=== PATIENT | male | born 1995 | race Caucasian/White ===

== ENCOUNTER 2020-05-18 08:56 | Emergency (ER) | payer OTHER, SELFPAY ==
--- NOTE | 2020-05-18 09:00 | ED.GENADULT ---
HPI - General Adult General Chief complaint: Nausea/Vomiting/Diarrhea Stated complaint: Stomach Pain Time Seen by Provider: 05/18/20 09:20 Source: patient Mode of arrival: ambulatory Limitations: no limitations History of Present Illness HPI narrative: 25-year-old male [facility] with complaints of nausea, vomiting, diarrhea and some abdominal pain. Patient states this started about 3 nights ago. Patient states that he has been on a diet recently however he had a cheat day the other day and ate some [place] food. Patient states she he does have issues of GERD in the past but has been off of his GERD medication for about 2 months. Patient states he was taking ranitidine and omeprazole. Patient states that after eating the [place] food at started getting his stomach upset and he has been having vomiting, nausea and some diarrhea yesterday. Denies any fevers. Patient states he has some abdominal discomfort but thinks it is mostly from him vomiting. Patient denies any chest pain, shortness of breath or sore throat. Related Data Allergies Allergy/AdvReac Type Severity Reaction Status Date / Time No Known Allergies Allergy Unverified 05/18/20 09:15 Review of Systems Review of Systems: Narrative: CONSTITUTIONAL: Denies fever, chills, or sweats. EYES: Denies visual changes, redness, or discharge. ENT: Denies rhinorrhea, congestion, sore throat, or otalgia. CARDIOVASCULAR: Denies chest pain, palpitations, or edema. RESPIRATORY: Denies cough or dyspnea. GASTROINTESTINAL: Abdominal discomfort, positive nausea, vomiting and diarrhea GENITOURINARY: Denies dysuria or hematuria. SKIN: Denies rash or itching. MUSCULOSKELETAL: Denies back pain, joint pain, or myalgia. NEUROLOGIC: Denies headache, numbness, or weakness. PSYCHIATRIC: Denies anxiety or depression. [facility] Past Medical History Medical History (Updated 05/18/20 @ 09:29 by KEVIN Waldron) GERD (gastroesophageal reflux disease) IBS (irritable bowel syndrome) Surgical History Surgical History (Updated 05/18/20 @ 09:01 by KEVIN Waldron) History of tonsillectomy Family History Family History Grandparent Family history of blood dyscrasia Diabetes mellitus Social History Social History Smoking status: Never smoker Comments At the time of my signature I agree with nursing past medical history, surgical, social, and family history. There is no relevant family history pertinent to the presenting complaint. Exam Narrative: Exam Narrative: GENERAL: Well-appearing, well-nourished, and in no acute distress. HEAD: Normocephalic, atraumatic. EYES: PERRLA and EOMI. ENT: Nares clear, no rhinorrhea or epistaxis. Mucous membranes moist. NECK: Supple. No lymphadenopathy CHEST: Clear to auscultation. No respiratory distress. HEART: Regular rate and rhythm. No murmur heard. Normal peripheral pulses. ABDOMEN: Soft, nondistended. No guarding, rebound tenderness, or rigid. No severe pain noted on palpitation but patient does feel discomfort all over to the belly on palpation. No pulsatilla masses. Hyperactive bowel sounds present in all four quadrants. No organomegaly. Negative Adan?s sign. No periumbicial tenderness. No Supra public tenderness or distension. Good femoral pulses bilaterally. No hernia noted. No scars or surface trauma. EXTREMITIES: Normal range of motion. No edema. SKIN: Warm, dry, no rash. NEURO: No focal deficits. Alert and oriented x3. Course Reevaluation(s) Reevaluation #1: Reevaluated patient after receiving Zofran. Patient states that he does feel a little bit better and feels that his nausea is improved. Patient sipping on some Sprite. Discussed with patient we will discharge him home with Zofran, Pepcid and omeprazole. Discussed with patient if his abdominal pain worsens he needs to go the ER. Patient verbal
[2020-05-18 09:09] VITALS: BP 138/87; PULSE 77; RESP 14; TEMP 37.1; O2SAT 100
[2020-05-18] MEDS: ONDANSETRON HCL ODT 4 MG TABLET PO (09:34)
== END 2020-05-18 09:59 | disposition home or self-care (01) ==
PROVIDERS: Emergency Provider Nurse Practitioner Family
DX: K52.9 Noninfective gastroenteritis and colitis, unspecified (principal); K21.9 Gastro-esophageal reflux disease without esophagitis
CPT/HCPCS: 99213; A9270; G0463

== ENCOUNTER 2020-12-25 08:50 | Emergency (ER) | payer OTHER, SELFPAY ==
[2020-12-25 09:21] VITALS: BP 146/75; PULSE 75; RESP 20; TEMP 36.9; O2SAT 98
--- NOTE | 2020-12-25 09:53 | ED.SKABFB ---
HPI - Skin/Abscess/Foreign Bdy General Chief complaint: Skin/Abscess/Foreign Body Stated complaint: leg infection and shoulder pain Time Seen by Provider: 12/25/20 09:45 Source: patient and RN notes reviewed Mode of arrival: ambulatory Limitations: no limitations History of Present Illness HPI narrative: Patient presents today complaining of a possible abscess to his right lower leg that has been present x2 days. Reports the area has been soft scar tissue since he had a staph infection in the same area when he was a child. He states this area busted open at work several days ago and had been draining. This area is now scabbed over, but he wanted to have it evaluated before it got more infected. Reports some pain with palpation. He has tried no [id number] interventions prior to arrival. MD complaint: abscess/boil Related Data Allergies Allergy/AdvReac Type Severity Reaction Status Date / Time No Known Allergies Allergy Unverified 12/25/20 09:32 Review of Systems Review of Systems: Narrative: CONSTITUTIONAL: Denies body aches, fever, chills, or sweats. EYES: Denies visual changes, redness, or discharge. ENT: Denies rhinorrhea, congestion, sore throat, or otalgia. CARDIOVASCULAR: Denies chest pain, palpitations, or edema. RESPIRATORY: Denies cough or dyspnea. GASTROINTESTINAL: Denies abdominal pain, nausea, vomiting, or diarrhea. GENITOURINARY: Denies dysuria or hematuria. SKIN: Denies rash, itching. + Possible abscess to right lower leg MUSCULOSKELETAL: Denies back pain, joint pain, or myalgia. NEUROLOGIC: Denies headache, numbness, tingling, or weakness. PSYCH: Denies depression or anxiety. [facility] Past Medical History Medical History (Updated 12/25/20 @ 09:58 by Yvonne Freedman, KEVIN, ) GERD (gastroesophageal reflux disease) History of staph infection IBS (irritable bowel syndrome) Surgical History Surgical History (Updated 05/18/20 @ 09:01 by KEVIN Waldron) History of tonsillectomy Family History Family History Grandparent Family history of blood dyscrasia Diabetes mellitus Social History Social History Smoking status: Never smoker Comments At time of signature, I have reviewed and agree with nursing past medical, surgical, social and family history unless otherwise noted. Please see nursing chart for further information. There is no relevant family history pertinent to the presenting complaint Exam Narrative: Exam Narrative: GENERAL: Well-appearing, well-nourished, and in no acute distress. HEAD: Normocephalic, atraumatic. EYES: EOMI. No redness or drainage. Conjunctivae normal. ENT: Mucous membranes pink and moist. NECK: Normal AROM. CHEST: No respiratory distress. EXTREMITIES: Normal range of motion. No edema. SKIN: Warm, dry, no rash. Capillary refill normal. Normal skin turgor. Only 2 cm superficial scabs to the anterior right lower leg surrounded in 3 mm ring of faint erythema. No edema, induration, fluctuance noted. Area is dry. Tender to palpation. NEURO: No focal deficits. Alert and oriented x3. Gait steady. PSYCH: Normal affect. No signs of depression or anxiety. Course Vital Signs Vital signs: Vital Signs Temperature 98.5 F 12/25/20 09:21 Pulse Rate 75 12/25/20 09:21 Respiratory Rate 20 12/25/20 09:21 Blood Pressure 146/75 H 12/25/20 09:21 Pulse Oximetry 98 12/25/20 09:21 Temperature 98.5 F 12/25/20 09:21 Pulse Rate 75 12/25/20 09:21 Respiratory Rate 20 12/25/20 09:21 Blood Pressure 146/75 H 12/25/20 09:21 Pulse Oximetry 98 12/25/20 09:21 Reviewed. Pt has been instructed to follow up with his PCP regarding his elevated blood pressure today. MDM - Skin/Abscess/Foreign Bdy Differential Diagnosis Differential diagnosis: Likely abscess of skin or subcutaneous tissue, cellulitis, insect bites, impetigo and co
== END 2020-12-25 10:00 | disposition home or self-care (01) ==
PROVIDERS: Emergency Provider Nurse Practitioner
DX: L03.115 Cellulitis of right lower limb (principal); K21.9 Gastro-esophageal reflux disease without esophagitis
CPT/HCPCS: 99213; G0463

== ENCOUNTER → 2021-07-18 02:26 | Outpatient (CLI) | payer BC, SELFPAY ==
[2021-07-18 17:37] LABS: SARS-CoV-2 RNA PCR Negative
== END ==
PROVIDERS: PCP Family Medicine; Visit Provider Physician Assistant Medical
DX: Z20.822 Contact with and (suspected) exposure to COVID-19 (principal)
CPT/HCPCS: C9803; U0003; U0005

== ENCOUNTER → 2021-07-27 01:02 | Outpatient (CLI) | payer BC, SELFPAY ==
[2021-07-31 19:26] LABS: SARS-CoV-2 RNA PCR Negative
== END ==
PROVIDERS: PCP Family Medicine; Visit Provider Nurse Practitioner Family
DX: R68.89 Other general symptoms and signs (principal); Z20.822 Contact with and (suspected) exposure to COVID-19
CPT/HCPCS: C9803; U0003; U0005